=== PATIENT | male | born 1940 | race Caucasian/White ===

== ENCOUNTER 2018-10-22 14:21 | Observation (INO) ==
[2018-10-22] MEDS ORDERED: Naloxone 0.4 MG/ML INJ IVP PRN (18:55)
[2018-10-22] MEDS ORDERED: *HR* Dextrose 50 % in Water (Syg) 50 ML SYRINGE IVP PRN (19:10)
[2018-10-22] MEDS ORDERED: Dextrose Gel 15 GM/37.5 ML TUBE PO PRN ×2 (19:10)
[2018-10-22] MEDS ORDERED: D5% in Water 1,000 ML IVC PRN (19:10)
[2018-10-22] MEDS: Acetaminophen 325 MG TABLET PO PRN (22:20)
[2018-10-23] MEDS: *HR* Heparin 5,000 UNIT/ML VIAL SQ SCH ×2 (05:06→18:06)
[2018-10-23] MEDS ORDERED: Pantoprazole 40 MG VIAL IVP ONE (05:45)
[2018-10-23 06:56] LABS: Basophils % 0.4 %; Eosinophils # 0.3 K/mcL (0.0-0.6); Eosinophils % 5.8 %; Hematocrit 38.2 % (37.5-50.1); Hemoglobin 11.4 g/dL (12.9-16.9); Immature Granulocytes % 0.2 % (0-4); Lymphocytes # 1.1 K/mcL (0.6-4.6); Lymphocytes % 19.1 %; Mean Corpuscular HGB Conc 29.8 g/dL (31.6-35.5); Mean Corpuscular Hemoglobin 20.7 pg (28.0-33.3); Mean Corpuscular Volume 69.5 fL (83.0-100.0); Mean Platelet Volume 10.3 fL (9.4-12.4); Monocytes # 0.5 K/mcL (0.0-1.3); Monocytes % 8.9 %; Neutrophils # 3.6 K/mcL (1.6-8.9); Platelet Count 171 K/mcL (140-400); Red Cell Distribution Width 18.5 % (11.5-14.5); Segmented Neutrophils % 65.6 %; White Blood Count 5.5 K/mcL (4.3-11.1)
[2018-10-23 07:14] LABS: BUN/Creatinine Ratio 22 (6-26); Blood Urea Nitrogen 17 mg/dL (8-23); Calcium 9.4 mg/dL (8.6-10.3); Carbon Dioxide 27 mEq/L (23-29); Chloride 105 mEq/L (98-107); Glucose 116 mg/dL (70-105); Osmolality,Calculated 293 (280-300); Potassium 3.5 mEq/L (3.5-5.1); Sodium 140 mEq/L (136-145); eGFR For African Americans > 60 (> 60); eGFR For Non-African Americans > 60 (> 60)
[2018-10-23 07:25] LABS: Anisocytosis 1+ (Not Present); Microcytosis Present (Not Present); Platelet Estimate Normal (Normal)
[2018-10-23] MEDS ORDERED: GlipiZIDE 5 MG TABLET PO SCH (08:00)
[2018-10-23] MEDS: Insulin LISPRO 300 UNITS/3 ML VIAL SQ SCH ×3 (08:11→18:46)
[2018-10-23] MEDS: amLODIPine 5 MG TABLET PO SCH (11:57)
[2018-10-23] MEDS: Aspirin 81 MG TAB.CHEW PO SCH (11:57)
[2018-10-23] MEDS: Acetaminophen 325 MG TABLET PO PRN (11:58)
[2018-10-23] MEDS: carvediloL 6.25 MG TABLET PO SCH ×2 (11:59→18:06)
[2018-10-23] MEDS: hydroCHLOROthiazide 25 MG TABLET PO SCH (12:00)
[2018-10-23] MEDS: Lisinopril 20 MG TABLET PO SCH (12:00)
[2018-10-23] MEDS ORDERED: Perflutren Lipid Microsphere 1.3 ML in 0.9 % Sodium Chloride 8.7 ML IVP ONE (14:30)
[2018-10-24] MEDS: Acetaminophen 325 MG TABLET PO PRN (02:51)
[2018-10-24] MEDS: *HR* Heparin 5,000 UNIT/ML VIAL SQ SCH (04:52)
[2018-10-24] MEDS: Insulin LISPRO 300 UNITS/3 ML VIAL SQ SCH ×2 (08:26→12:47)
[2018-10-24] MEDS ORDERED: Isovue-370 500 ML BOTTLE IVP ONE (10:23)
[2018-10-24] MEDS: Lisinopril 20 MG TABLET PO SCH (12:41)
[2018-10-24] MEDS: carvediloL 6.25 MG TABLET PO SCH (12:41)
[2018-10-24] MEDS: Aspirin 81 MG TAB.CHEW PO SCH (12:41)
[2018-10-24] MEDS: hydroCHLOROthiazide 25 MG TABLET PO SCH (12:41)
[2018-10-24] MEDS: amLODIPine 5 MG TABLET PO SCH (12:41)
[2018-10-24 15:06] VITALS: BP 107/69
== END 2018-10-24 16:38 | disposition home or self-care (01) ==
LOC: 3BNU → SUATTDRO 16:40
PROVIDERS: ADMIT Internal Medicine; ATTEND Family Medicine